=== PATIENT | male | born 1940 | race Caucasian/White ===

== ENCOUNTER 2023-03-25 08:11 | Outpatient (CLI) | payer MEDICARE, BC ==
[2023-03-25] MEDS ORDERED: Magnevist 469MG/ML 20 ML VIAL ONE (12:49)
== END 2023-03-25 08:12 | disposition home or self-care (01) ==
LOC: CSHMRI 08:11
PROVIDERS: ATTEND Urology
DX: R97.20 Elevated prostate specific antigen [PSA] (principal); N40.2 Nodular prostate without lower urinary tract symptoms; R93.89 Abnormal findings on diagnostic imaging of other specified body structures
CPT/HCPCS: 72197; 82565; A9579

== ENCOUNTER 2024-05-10 14:51 | Outpatient (CLI) | payer MEDICARE | END 2024-05-10 14:52 | disposition home or self-care (01) | LOC: CSHRAD 14:51 | PROVIDERS: ATTEND Family Medicine Sports Medicine | DX: Z01.818 Encounter for other preprocedural examination (principal); Z87.891 Personal history of nicotine dependence | CPT/HCPCS: 71046 ==

== ENCOUNTER 2024-05-21 14:09 | Outpatient (CLI) | payer MEDICARE ==
[~2024-05-21 14:09] MED LIST: Iopamidol 300 61% 100 ML VIAL FS ONE
== END 2024-05-21 14:10 | disposition home or self-care (01) ==
LOC: CSHCT 14:09
PROVIDERS: ATTEND Family Medicine Sports Medicine
DX: R91.8 Other nonspecific abnormal finding of lung field (principal)
CPT/HCPCS: 71260